=== PATIENT | female | born 1970 | race African-American/Black ===

== ENCOUNTER 2017-06-24 06:12 | Outpatient (CLI) | payer MEDICARE ==
[2017-06-24 08:17] LABS: Bilirubin Negative (Negative); Blood, Urine Trace (Negative); Clarity Cloudy (Clear); Glucose, Urine (Dipstick) Negative (Negative); Leukocyte Large (Negative); Nitrite Negative (Negative); Protein, Urine (Dipstick) 30 mg/dL (Neg-Trace); Specific Gravity, Urine 1.015 (1.005-1.030)
[2017-06-24 10:21] LABS: Bacteria/HPF Rare-Few HPF (None Seen); Crystals/HPF 1+ AMORPH URATES HPF (Negative); RBC/HPF 0-3 HPF (0-3); Renal Epithelial 0-3 HPF (0-3); Squamous Epithelial 0-3 HPF (0-3)
== END 2017-06-24 06:13 | disposition home or self-care (01) ==
LOC: BURLABSP 06:12
PROVIDERS: ATTEND Clinical Nurse Specialist Medical-Surgical
DX: N39.0 Urinary tract infection, site not specified (principal)
CPT/HCPCS: 81001; 87077; 87086; 87186

== ENCOUNTER 2017-07-15 02:35 | Outpatient (CLI) | payer MEDICARE | END 2017-07-15 02:36 | disposition home or self-care (01) | LOC: BURLABSP 02:35 | PROVIDERS: ATTEND Clinical Nurse Specialist Medical-Surgical | DX: I63.9 Cerebral infarction, unspecified (principal); I66.22 Occlusion and stenosis of left posterior cerebral artery; E03.9 Hypothyroidism, unspecified ==

== ENCOUNTER 2017-08-12 02:08 | Outpatient (CLI) | payer MEDICARE ==
[2017-08-12 12:29] LABS: Anion Gap 15 mmol/L (10-20); BUN (Urea Nitrogen) 17 mg/dL (7.0-18.7); Bilirubin, Total 0.4 mg/dL (0.2-1.2); Calc. Creatinine Clearance 0 mL/min (70-130); Calcium 10.3 mg/dL (7.8-10.44); Carbon Dioxide 24 mmol/L (22-29); Chloride 106 mmol/L (98-107); Estimated GFR-MDRD 63; Glucose 116 mg/dL (70-105); Potassium 4.2 mmol/L (3.5-5.1); Sodium 141 mmol/L (136-145)
[2017-08-12 12:30] LABS: ALT (SGPT) 14 U/L (8-55); AST (SGOT) 26 U/L (5-34); Albumin 3.6 g/dL (3.5-5.0); Alkaline Phosphatase 48 U/L (40-150); Globulin 3.8 g/dL (2.4-3.5); Protein, Total 7.4 g/dL (6.0-8.3)
[2017-08-12 12:52] LABS: Free T4 (Free Thyroxine) 1.34 ng/dL (0.70-1.48)
== END 2017-08-12 02:09 | disposition home or self-care (01) ==
LOC: BURLABSP 02:08
PROVIDERS: ATTEND Clinical Nurse Specialist Medical-Surgical
DX: E03.9 Hypothyroidism, unspecified (principal); E23.6 Other disorders of pituitary gland
CPT/HCPCS: 36415; 80053; 82024; 82533; 84439; 84443

== ENCOUNTER 2017-10-21 11:11 | Emergency (ER) | payer MEDICARE ==
--- NOTE | 2017-10-21 15:45 | CT ---
CT BRAIN WITHOUT CONTRAST: Date: 10-21-17 Comparison: 05-28-17 FINDINGS: No intracranial bleeding or extraaxial hematoma was appreciated. Diffuse atrophy with moderate compen satory dilatation of the ventricles is present. Profound deep white matter lucency is typical of resident care spec shekhar ischemic changes, however, there is also evidence of a prior right occipital stroke. This was pre sent on the prior study. None of the areas were strongly suggestive of acute stroke, however, small a cute infarcts would be missed on this study due to all of the chronic changes. MRI would be more sens itive in detecting acute events in that respect. The falx cerebri is very heavily calcified anteriorl y. No skull fracture was seen. There was no air-fluid level in the sphenoid sinus and the mastoid air cells are clear. IMPRESSION: Old strokes and chronic ischemic changes but no definite acute findings. POS: HOME
== END 2017-10-21 14:04 | disposition home or self-care (01) ==
LOC: BURERS 11:11
DX: S09.90XA Unspecified injury of head, initial encounter (principal); E10.9 Type 1 diabetes mellitus without complications; I10 Essential (primary) hypertension; W05.0XXA Fall from non-moving wheelchair, initial encounter; Y92.129 Unspecified place in nursing home as the place of occurrence of the external cause
CPT/HCPCS: 70450

== ENCOUNTER 2017-10-30 11:14 | Emergency (ER) | payer MEDICARE ==
[~2017-10-30 11:14] MED LIST: Iopamidol 370 76% 100 ML VIAL ONE
[2017-10-30 11:46] LABS: #Basophils 0.1 thou/uL (0.0-0.2); #Eosinphils 0.2 thou/uL (0.0-0.7); #Lymphocytes 2.5 thou/uL (1.20-3.40); #Monocytes 1.2 thou/uL (0.11-0.59); #Neutrophils 7.5 thou/uL (1.40-6.50); %Basophils 1.2 % (0.0-1.0); %Eosinophils 1.9 % (0.0-10.0); %Lymphocytes 21.4 % (21.0-51.0); %Monocytes 10.7 % (0.0-10.0); %Neutrophils 64.9 % (42.0-75.0); Hemoglobin 14.3 g/dL (12.0-16.0); Mean Corpuscular HGB CONC 33.8 g/dL (32.0-36.0); Mean Corpuscular Hemoglobin 32.5 pg (27.0-31.0); Mean Platelet Volume 8.4 fL (7.4-10.4); Platelet Count 255 thou/uL (130-400); RBC Distribution Width 12.1 % (11.5-14.5); Red Blood Cell (RBC) Count 4.39 mill/uL (4.20-5.40); White Blood Cell (WBC) Count 11.5 thou/uL (4.8-10.8)
[2017-10-30 11:53] LABS: PTT 26.9 SEC (22.9-36.1); Prothrombin Time 13.3 SEC (12.0-14.7)
[2017-10-30] MEDS ORDERED: Acetaminophen 650 MG Suppository ONE (11:54)
[2017-10-30 12:04] LABS: ALT (SGPT) 10 U/L (8-55); AST (SGOT) 13 U/L (5-34); Albumin 3.4 g/dL (3.5-5.0); Alkaline Phosphatase 48 U/L (40-150); Anion Gap 15 mmol/L (10-20); BUN (Urea Nitrogen) 13 mg/dL (7.0-18.7); Bilirubin, Total 0.4 mg/dL (0.2-1.2); Calc. Creatinine Clearance 0 mL/min (70-130); Carbon Dioxide 25 mmol/L (22-29); Chloride 106 mmol/L (98-107); Estimated GFR-MDRD 84; Globulin 3.9 g/dL (2.4-3.5); Glucose 228 mg/dL (70-105); Potassium 3.7 mmol/L (3.5-5.1); Protein, Total 7.3 g/dL (6.0-8.3); Sodium 142 mmol/L (136-145)
[2017-10-30 12:05] LABS: CKMB 0.5 ng/mL (0-6.6); Troponin I 0.025 ng/mL (< 0.028)
[2017-10-30 12:30] LABS: Bilirubin Negative (Negative); Blood, Urine Negative (Negative); Clarity Slightly Cloudy (Clear); Glucose, Urine (Dipstick) Negative (Negative); Leukocyte Negative (Negative); Nitrite Negative (Negative); Protein, Urine (Dipstick) 100 mg/dL (Neg-Trace); Urobilinogen 0.2 mg/dL (0.2-1.0)
[2017-10-30 12:38] LABS: RBC/HPF 0-3 HPF (0-3); Squamous Epithelial 0-3 HPF (0-3); WBC/HPF 0-3 HPF (0-3)
[2017-10-30 12:39] LABS: Bacteria/HPF 2+ HPF (None Seen); Hyaline Casts/LPF 0-3 HYALINE CAST LPF (0-3 Hyaline)
[2017-10-30] MEDS ORDERED: Piperacillin/Tazobactam 3.375 GM VIAL ONE (13:41)
--- NOTE | 2017-10-30 13:43 | RAD ---
CHEST 1 VIEW: Date: 10/30/17 HISTORY: Altered mental status. COMPARISON: Chest 1 view dated 05/28/17. FINDINGS: Lungs are hypoinflated. No focal air space consolidation, pneumothorax, or effusion noted. No focal o sseous abnormality. IMPRESSION: No acute intrathoracic abnormality. POS: [facility]
--- NOTE | 2017-10-30 14:54 | CT ---
CT FACE WITHOUT CONTRAST: Date: 10/30/17 HISTORY: Fever. 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 There is extensive right nasal labial soft tissue edema and hype renhancement cellulitis. A drainable collection is not felt to be appreciated. There is inflammation along the superior lip. There is a large cavity of the left maxillary canine which may be the origin of this infectious proce ss. Upper cervical spine is unremarkable. No fracture of the face. There is a large lucency around the le ft maxillary third molar root. Mild atherosclerotic plaque of the internal carotid arteries. Medial orbital otoole, lateral orbital otoole, zygoma, and zygomatic arch are all intact. IMPRESSION: 1. Extensive left paranasal labral inflammation cellulitis without a drainable fluid collection. Giv en the extensive phlegmonous changes, patient is at high risk for developing an abscess. There is lar ge erosion of the left maxillary canine tooth with alveolar bone erosions, which may be the source of infectious process. OMFS consultation advised. 2. Right-sided phthisis bulbi. POS: [facility]
[2017-10-30] MEDS ORDERED: Ampicillin/Sulbactam 1.5 GM VIAL ONE (15:46)
[2017-10-30] MEDS ORDERED: Sterile Water 10 ML ONE (15:47)
== END 2017-10-30 16:14 | disposition short-term general hospital (02) ==
LOC: BURERS 11:14
DX: L03.211 Cellulitis of face (principal); K04.7 Periapical abscess without sinus; E03.9 Hypothyroidism, unspecified; E10.39 Type 1 diabetes mellitus with other diabetic ophthalmic complication; H40.9 Unspecified glaucoma; I10 Essential (primary) hypertension
CPT/HCPCS: 36415; 51701; 70487; 71010; 80053; 81003; 81015; 82553; 83605; 84484; 85025; 85610; 85730; 87040; 94760; 96365; 96366; 96367; 96375; A4216; A4353; J0295; J2543; J3370

== ENCOUNTER 2017-11-17 14:36 | Emergency (ER) | payer MEDICARE ==
--- NOTE | 2017-11-17 16:07 | CT ---
CT OF THE BRAIN WITHOUT CONTRAST: DATE: 11/17/17. COMPARISON: Comparison is made with the 10/21/17 study. FINDINGS: Diffuse atrophy and ventricular dilation is seen which is unchanged from the [address] CT[address] Patchy hypoluc ency in the deep white matter is consistent with chronic microvascular ischemia. An old right occipi josué infarct is again noted. No intracranial bleeding or extraaxial hematoma was seen today. A small scalp hematoma is seen in the left frontal region with no evidence of underlying fracture. The skul l appears intact. The sphenoid sinus is clear. The lobe of the right eye is shrunken and calcified, a chronic condition. IMPRESSION: Ischemic changes including an old right occipital infarct. No acute traumatic findings intracraniall y. POS: HOME
== END 2017-11-17 15:21 | disposition home or self-care (01) ==
LOC: BURERS 14:36
DX: S00.83XA Contusion of other part of head, initial encounter (principal); E03.9 Hypothyroidism, unspecified; E10.39 Type 1 diabetes mellitus with other diabetic ophthalmic complication; H40.9 Unspecified glaucoma; G93.41 Metabolic encephalopathy; Z86.73 Personal history of transient ischemic attack (TIA), and cerebral infarction without residual deficits; Z79.4 Long term (current) use of insulin; Z79.899 Other long term (current) drug therapy; Z79.82 Long term (current) use of aspirin; W05.0XXA Fall from non-moving wheelchair, initial encounter
CPT/HCPCS: 70450

== ENCOUNTER 2018-02-05 23:46 | Emergency (ER) | payer MEDICARE, MEDICAID | END 2018-02-06 00:30 | disposition home or self-care (01) | LOC: BURERS 23:46 | DX: S50.311A Abrasion of right elbow, initial encounter (principal); S80.212A Abrasion, left knee, initial encounter; S80.211A Abrasion, right knee, initial encounter; E66.9 Obesity, unspecified; E03.9 Hypothyroidism, unspecified; I10 Essential (primary) hypertension; H54.40 Blindness, one eye, unspecified eye; E10.9 Type 1 diabetes mellitus without complications; Z86.73 Personal history of transient ischemic attack (TIA), and cerebral infarction without residual deficits; Z79.82 Long term (current) use of aspirin; Z79.899 Other long term (current) drug therapy; W06.XXXA Fall from bed, initial encounter | CPT/HCPCS: 99284 ==